=== PATIENT | female | born 1945 | race Caucasian/White ===

== ENCOUNTER 2024-11-14 08:01 | Day surgery (SDC) | payer MEDICARE, OTHER, SELFPAY ==
[2024-10-17 12:24] VITALS: BMI 34.2
[2024-10-17 12:45] LABS: Hematocrit 39.0 % (37.0-47.0); Hemoglobin 13.7 g/dL (12.0-16.0); Mean Corp Hgb Conc. 35.1 g/dL (33.0-37.0); Mean Corpuscular Volume 89.4 fL (81.0-99.0); Nucleated Red Blood Cells % 0 %; Platelet Count 242 10^3/uL (130-400); Red Cell Dist. Width 12.2 % (11.5-14.5)
[2024-10-17 13:01] LABS: INR 1.09; PT 14.6 Sec (11.4-14.6)
[2024-10-17 13:23] LABS: ALT (SGPT) 29 U/L (0-35); AST (SGOT) 22 U/L (14-36); Albumin 4.6 g/dl (3.5-5.0); Alkaline Phosphatase 104 U/L (38-126); Blood Urea Nitrogen 22 mg/dl (7-17); Calcium 8.9 mg/dl (8.4-10.2); Carbon Dioxide 25 mmol/L (22-30); Chloride 106 mmol/L (98-107); Estimated Creatinine Clearance 69 ml/min; Glucose 108 mg/dl (70-99); Magnesium 2.1 mg/dl (1.6-2.3); Potassium 4.4 mmol/L (3.5-5.1); Sodium 137 mmol/L (135-145); Total Protein 7.2 g/dl (6.3-8.2); eGFR > 60.00
--- NOTE | 2024-10-17 13:43 | HPS.HSE ---
Family Physician
-
Family Physician: Alex Meadows
Chief Complaint
-
Paroxysmal atrial fibrillation.
History of Present Illness
The patient is a 78 year old female presenting today for paroxysmal atrial fibrillation. She reportedly also has a history of typical atrial flutter. The patient notes exertional shortness of breath, palpitations, fatigue, and
lightheadedness associated with this diagnosis. She underwent pulmonary vein isolation in 2010 and a repeat ablation/CTI in 2011. She did well after these procedures for several years until her symptoms returned within the last year. A recent heart
monitor demonstrated a 21% atrial fibrillation burden. She is on pharmacological therapy with Metoprolol Succinate as needed; however, she rarely uses this medication as it only increases her fatigue. She has been compliant with Eliquis for oral
anticoagulation. She is interested in pursuing repeat pulmonary vein isolation for more definitive arrhythmia management. She denies any current complaints today siuch as chest pain, shortness of breath at rest, nausea, vomiting, diarrhea,
dizziness, cough, sore throat, or fever.
Medical History
Past Medical History
Past Medical History: Reports Other
Additional Past Medical History:
1. Paroxysmal atrial fibrillation and typical atrial flutter, status post pulmonary vein isolation, 2010, and repeat ablation/CTI 2011; pharmacological therapy with Metoprolol Succinate as needed and oral anticoagulation with Eliquis.
2. Hypertension.
3. Hypercholesterolemia.
4. Right bundle branch block.
5. PACs.
6. Mild mitral regurgitation.
7. Mild obstructive sleep apnea, no current device.
8. GERD.
9. Fatty liver disease.
10. Hepatic cyst.
11. Lumbar stenosis.
12. Osteoarthritis, status post left total hip arthroplasty approximately 5 years ago.
13. Recurrent squamous cell carcinoma, status post excision and radiation therapy.
14. Chronic post-nasal drip.
15. Obesity, BMI 34.2.
Past Surgical History: Reports Other
Additional Past Surgical History:
1. Pulmonary vein isolation.
2. Repeat pulmonary vein isolation/CTI.
3. Left total hip arthroplasty.
4. Oophorectomy.
5. Cholecystectomy.
6. Squamous cell carcinoma excisions.
7. Bilateral cataract extraction.
8. Multiple colonoscopies.
Social History
Tobacco: Non-smoker
Alcohol: Occasional (1 glass of wine reported 1-2 times a week. )
Personal:
Living: Other (She lives with her spouse in a 2 story home. )
Family History
Family History: Not pertinent
Allergies / Home Medications
Allergy/Medication List:
Home medications:
1. Eliquis 5 mg p.o. twice a day.
2. Hydrochlorothiazide 25 mg p.o. daily.
3. Magnesium citrate 325 mg p.o. daily.
4. Metoprolol Succinate 25 mg p.o. daily as needed.
5. Olmesartan 20 mg p.o. daily.
6. Omeprazole 40 mg p.o. daily.
Allergies: Methylparaben. Adhesive.
Review of Systems
-
A 12 point ROS was completed and negative except as noted: Yes
Physical Exam
Vital Signs
Blood pressure 139/76. Heart rate 81. Respirations 18. Pulse ox 95% on room air.
Height 5 feet, 2.5 inches. Weight 86.1 kg. BMI 34.2.
Physical Exam
General: Well Developed, Well Nourished and No Apparent Distress
HEENT: NormoCephalic, Moist mucous membranes, Atraumatic and PERRLA
Respiratory: Clear
Cardiac: Regular Rhythm
GI: Soft, Non Tender, Non Distended and Other (Obese. )
Musculoskeletal: No Edema and Normal Gait & Station
Skin: Warm and Dry
Neuro: AO x 3 and Nonfocal/grossly intact
Laboratory Results
-
10/17/24 12:33
10/17/24 12:33
Laboratory Results
PT 14.6 Sec (11.4-14.6) 10/17/24 12:33
INR 1.09 10/17/24 12:33
Total Bilirubin 0.6 mg/dl (0.2-1.3) 10/17/24 12:33
AST 22 U/L (14-36) 10/17/24 12:33
ALT 29 U/L (0-35) 10/17/24 12:33
Alkaline Phosphatase 104 U/L (38-126) 10/17/24 12:33
Magnesium 2.1.
Type and screen B positive.
EKG 10/17/2024: Normal sinus rhythm with sinus arrhythmia. Low voltage QRS. Right bundle branch block.
Echocardiogram 10/30/2023: Ejection fraction is 50-55%. Mild concentric left ventricular hypertrophy. Mild mitral regurgitation.
Nuclear stress test 11/03/2023: Low risk stress test. No evidence of ischemia or infarction.
Impression/Plan
-
IMPRESSION/PLAN:
1. Paroxysmal atrial fibrillation: The patient is in need of pulmonary vein isolation with Dr. Kenan Garcia on 11/14/2024. The benefits and risks of the procedure have been explained to the patient. The patient understands these risks and wishes to
proceed. She will not be required to undergo a pre-procedural transesophageal echocardiogram as she has been compliant with her home oral anticoagulation. She is aware to continue her Eliquis uninterrupted prior to her procedure. She will take no
medications the morning of her ablation.
[2024-11-14] VITALS (11 sets, daily range): BP systolic 120–138; BP diastolic 61–114; BMI 32.1
[2024-11-14 11:04] LABS: ACT-LR - POC 327 Seconds (116-155)
--- NOTE | 2024-11-14 11:18 | ITS.CL.ABL ---
Hose Seamer - Ablation
Ablation
Procedure Report:
ELECTROPHYSIOLOGY ABLATION STUDY
DATE:: November 14, 2024 REFERRING: Dr. Lopez Tapia
INDICATION: Paroxysmal supraventricular tachycardia in the form of atrial fibrillation. Prior PVI in 2010 with a first generation cryoballoon and repeat PVI in 2012 with reisolation of the left veins with a second-generation cryoballoon and CTI
flutter ablation. Recurrent atrial fibrillation
HISTORY: See H and P. As above
ANTIARRHYTHMIC DRUG: Metoprolol
PRE-PROCEDURE JIM: No atrial thrombus on intracardiac ultrasound
PRESENTING RHYTHM: Sinus rhythm
'TIME-OUT': called and confirmed.
SEDATION/ANESTHESIA: provided via the anesthesia department using general anesthesia (LMA).
INTRAVENOUS/ARTERIAL ACCESS:
Right femoral venous - 8Fr
Left femoral venous - 8 Fr, 6 Fr
[id number] suture bilaterally
Ultrasound guidance for bilateral femoral vein access was utilized by me to obtain access with demonstration of normal anatomy
CHADS-VASC Score:
HAS-Bled Score
PROCEDURE:
1. A decapolar CS catheter was placed within the CS for mapping and pacing. This was also used as the reference catheter for the 3-D map.
2. The intracardiac ultrasound catheter was positioned in the RA to identify the FO for targeting of transseptal puncture, assist in identification of the pulmonary vein ostia, monitoring pre and post ablation pulmonary vein flow velocities,
monitoring for 'bubble' formation during RF application as a sign of thermal injury, and to monitor for pericardial effusion during mapping and ablation procedure. Left atrial size, LV ejection fraction, and pulmonary vein flows were monitored
pre and post ablation procedure. The other valves were inspected and found to be free of significant regurgitation or stenosis.
3. Half of the calculated heparin bolus was administered prior to the first transeptal puncture. Transseptal puncture was performed to diagnose RA and LA pressure so that safety of LA mapping and ablation could be further assessed, and to access
the left atrium and pulmonary veins for mapping and ablation. This entailed advancing an 10 [place] steerable sheath with dilator into the superior vena cava and withdrawing both (monitoring intracardiac ultrasound, fluoroscopy and tip pressure)
with the tip oriented toward the atrial septum. The fossa ovalis was engaged (indicated by sudden displacement of the sheath tip as well as tenting of the fossa seen on intracardiac ultrasound). Left atrial access required a pass with the
Brockenbrough needle extended. Left atrial catheter position was confirmed by pressure monitoring (RA mean pressure 8 mm Hg and LA mean presure 12 mm Hg), LA saturation (99%), as well as fluoroscopy. The sheath was advanced over the dilator and
positioned in the left atrium. This procedure was repeated for the Agilis sheath. The remainder of the calculated heparin bolus was administered and heparin was
infused to maintain ACT at 300 -350 seconds throughout the case.
4. RA pacing was performed via the proximal decapolar poles and LA pacing was performed via the distal decapolr poles.
5. A quadrapolar catheter was first positioned at the His position for His Bundle recording which was tagged via the 3-D Navex sytem, and then passed to the RVA for RV pacing and recording.
6. The 9 mm lattice catheter was placed in each of the LIPV, LSPV, RSPV and the RIPV.
7. Next, a 3-D map was created using Navex. A 3-D reconstructed CT image was compared to the 3-D Navex map to assist in anatomic interpretation, mapping and ablation. The CT image and the NavX image were fused.
8. Focal signal on the septal sunil of the right veins and the appendage side of the ligament of Miguel Ángel on the left sunil were noted. These regions were targeted with PFA rendering entrance and exit block in all 4 pulmonary veins. We then
performed a posterior wall box lesion set which rendered the roof posterior wall and floor of the left atrium electrically silent. EP study after this did not demonstrate any inducible triggers for atrial fibrillation. We then also checked the
prior CTI flutter ablation which demonstrated persistent bidirectional block intra isthmus conduction time of 164 ms with wide split double potentials from tricuspid annulus back to the IVC with coronary sinus pacing.
9. Normal sinus node and AV node function noted. AV Wenckebach was noted at 310 ms.
TOTAL FLOURO TIME: 11.1 minutes 103 mGy
TOTAL RF DURATION: 0 minutes
REVERSAL OF HEPARIN: 35 mg of protamine, slow IV administration
COMPLICATIONS:
None
Intracardiac US shows no pericardial effusion post ablation.
SUMMARY:
Complex left atrial mapping and ablation.
Focal reisolation of the septal sunil of the right veins and the appendage side of ligament of Miguel Ángel at the left sunil. Posterior wall box lesion set rendering the posterior wall electrically isolated. CTI flutter ablation with persistent
bidirectional block from the 2013 procedure.
RECOMMENDATIONS:
1. Ambulate in 4 hours
2. Resume anticoagulation
3. Continue metoprolol
4. Consider same-day discharge
Copy to: Dr. Cisneros at [facility]
[2024-11-14] MEDS: ANESTHETIC LOZENGE 1 LOZENGE PO (13:26)
--- NOTE | 2024-11-14 16:00 | W.PN.UPDATE ---
Update Note
Progress Note Update
79 yo WF s/p PVI (same day). SHe denies cp,sob, kaitlin diet, mild sore throat, EKG SR RBBB, b/l groins c/d/i no HT, soft. She will resume Eliquis tonight and continue metoprolol PRN. Activity restrictions reviewed. She will f/u Dr. Zamudio in 3 mo.
She is for d/c home after 4pm.
== END 2024-11-14 16:00 | disposition home or self-care (01) ==
LOC: CATH 08:01
PROVIDERS: ATTENDING PHYSICIAN Internal Medicine Cardiovascular Disease; FAMILY PHYSICIAN Family Medicine; OTHER PHYSICIAN Internal Medicine
DX: I48.0 Paroxysmal atrial fibrillation (principal); R06.02 Shortness of breath; R00.2 Palpitations; Z79.899 Other long term (current) drug therapy; I10 Essential (primary) hypertension; E78.00 Pure hypercholesterolemia, unspecified; I45.10 Unspecified right bundle-branch block; K76.89 Other specified diseases of liver; G47.33 Obstructive sleep apnea (adult) (pediatric); I34.0 Nonrheumatic mitral (valve) insufficiency; K76.0 Fatty (change of) liver, not elsewhere classified; K21.9 Gastro-esophageal reflux disease without esophagitis; M48.061 Spinal stenosis, lumbar region without neurogenic claudication; M19.90 Unspecified osteoarthritis, unspecified site; Z96.642 Presence of left artificial hip joint; E66.9 Obesity, unspecified; Z68.34 Body mass index [BMI] 34.0-34.9, adult; Z79.01 Long term (current) use of anticoagulants; Z98.41 Cataract extraction status, right eye; Z98.42 Cataract extraction status, left eye
CPT/HCPCS: C1733; C1894; C1730; C1766; C1892; C1759; 36415; 80053; 83735; 85025; 85347; 85610; 86850; 86900; 86901; 93005; 93655; 93656; 93657